=== PATIENT | male | born 1975 | race Caucasian/White ===

== ENCOUNTER 2017-02-14 13:02 | Emergency (ER) | payer SELFPAY ==
--- NOTE | 2017-02-14 13:31 | ERPHSYRPT ---
- History of Present Illness Time Seen by Provider: 02/14/17 13:28 Source: patient Exam Limitations: no limitations Patient Subjective Stated Complaint: states caught left hand in a door on wednesday. Triage Nursing Assessment: ambulated to room without difficulty. left hand very swollen. good radial pulse and good cap refill. denies pain Physician History: states caught left hand in a door on wednesday. Occurred: last week Method of Injury: direct blow Quality: constant Severity of Pain-Max: mild Severity of Pain-Current: mild Extremities Pain Location: hand: left Modifying Factors: Improves With: nothing Associated Symptoms: none Body Map: 1 - swelling Allergies/Adverse Reactions: No Known Drug Allergies Allergy (Verified 02/14/17 13:20) Home Medications: No Reportable Medications [No Reported Medications] 02/14/17 [History] Hx Tetanus, Diphtheria Vaccination/Date Given: No Hx Influenza Vaccination/Date Given: No Hx Pneumococcal Vaccination/Date Given: No - Review of Systems Constitutional: No Symptoms Eyes: No Symptoms Ears, Nose, & Throat: No Symptoms Respiratory: No Symptoms Musculoskeletal: Joint Pain, Joint Swelling (left hand) - Past Medical History Pertinent Past Medical History: No History: Other - Past Surgical History Past Surgical History: Yes Male Surgical History: Testicular Surgery Other Surgical History: hydroceal - Social History Smoking Status: Current every day smoker How long have you smoked: 20 Exposure to second hand smoke: No Drug Use: none Patient Lives Alone: No Significant Family History: no pertinent family hx - Nursing Vital Signs Nursing Vital Signs: Initial Vital Signs Temperature 98.3 F Temperature Source Oral Pulse Rate 80 Respiratory Rate 16 Blood Pressure [] 127/86 Pain Intensity 0 - Physical Exam General Appearance: no apparent distress Hand Exam: limited ROM, soft tissue tenderness, swelling SpO2: 98 Oxygen Delivery: Room Air - Course Nursing assessment & vital signs reviewed: Yes - Radiology Exams Hand X-ray Interpretation: Reviewed by me (no acute fracture) Ordered Tests: Active Orders 24 hr Category Date Time Status HAND (MINIMUM 3 VIEWS) Stat Exams 02/14/17 13:22 Taken - Progress Progress: unchanged, pain not gone completely Counseled pt/family regarding: diagnosis, need for follow-up, rad results - Departure Time of Disposition: 13:53 Departure Disposition: Home Clinical Impression: Hand injury Qualifiers: Encounter type: initial encounter Laterality: left Qualified Code(s): S69.92XA - Unspecified injury of left wrist, hand and finger(s), initial encounter Condition: Good Critical Care Time: No Referrals: MARY MAURO [Primary Care Provider] - Instructions: Finger Sprain Additional Instructions: SPRAINS/STRAINS/CONTUSIONS 1. Rest the affected area as much as possible for the next few days. 2. Apply ice to the affected area for 20-30 minutes at a time, several times a day. 3. Please wear hand and wrist brace for 3 days. If you receive an elastic wrap , wear it only while awake for comfort and support. Re-wrap the elastic wrap if it feels too tight or too loose. 4. If swelling is present, elevate the affected part above the level of the heart for at least 2 to 3 days. 5. Use splints, slings, or crutches as instructed. 6. Watch for severe swelling, coldness, numbness, and discoloration of the fingers and toes. See your family physician or return to the emergency department if any of these are noted. Forms: Work/School Release Form
[2017-02-14 13:59] VITALS: BP 106/64; PULSE 71; O2SAT 97
--- NOTE | 2017-02-14 22:11 | XRAY ---
Indication: Pain and swelling following car door injury. Comparison: None 3 views of the left hand obtained. No bony, articular, or soft tissue abnormalities.
== END 2017-02-14 14:03 | disposition home or self-care (01) ==
LOC: ED 13:02
DX: S60.222A Contusion of left hand, initial encounter (principal); W23.0XXA Caught, crushed, jammed, or pinched between moving objects, initial encounter
CPT/HCPCS: 73130; 99283; L3908

== ENCOUNTER 2017-04-18 11:49 | Emergency (ER) | payer OTHER ==
[2017-04-18] MEDS ORDERED: TORAdol 30 mg Injection IM ONE (12:03)
[2017-04-18] MEDS ORDERED: TORAdol 30 mg Injection ONE (12:06)
--- NOTE | 2017-04-18 12:10 | ERPHSYRPT ---
- History of Present Illness Time Seen by Provider: 04/18/17 12:00 Source: patient Exam Limitations: no limitations Patient Subjective Stated Complaint: pt states he injured back 1 week ago while working. 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 c/o low back pain with numbness to left leg. states he is urinating wnl. Triage Nursing Assessment: pt pink, warm, dry. pt ambulated into Er on own. no deformity noted to back. no dysuria. Physician History: 41-year-old white male arrives with complaint of back pain low lumbar region on the left side symptoms for one week. He states he lifts a lot at work. He denies any acute injuries past medical history includes chronic back pain . Past surgical history includes testicular surgery and hydrocele Inspect is reviewed patient is not on current narcotics Timing/Duration: week(s) (1 week) Method of Injury: lifting (patient states he lifts a lot at work no acute) Quality: aching Back Pain Location: lumbar spine (left lumbar spine) Severity of Pain-Max: moderate Severity of Pain-Current: moderate Modifying Factors: Improves With: nothing Associated Symptoms: lower back pain, No fever, No chills, No sweating, No urinary incontinence, No loss of bowel control, No constipation, No nausea, No vomiting, No problems urinating, No light-headedness, No dizziness, No numbness in legs/feet, No weakness, No sensory/motor loss, No tingling in legs/feet, No muscle spasms Previous symptoms: same symptoms as today (patient's seen approximately 2 years ago for similar pain) Allergies/Adverse Reactions: No Known Drug Allergies Allergy (Verified 04/18/17 11:59) Hx Tetanus, Diphtheria Vaccination/Date Given: Yes (up to date) Hx Influenza Vaccination/Date Given: No Hx Pneumococcal Vaccination/Date Given: No Immunizations Up to Date: Yes - Review of Systems Constitutional: No Fever, No Chills Eyes: No Symptoms Ears, Nose, & Throat: No Symptoms Respiratory: No Cough, No Dyspnea Cardiac: No Chest Pain, No Edema, No Syncope Abdominal/Gastrointestinal: No Abdominal Pain, No Nausea, No Vomiting, No Diarrhea Genitourinary Symptoms: No Dysuria Musculoskeletal: Back Pain Skin: No Rash Neurological: No Dizziness, No Focal Weakness, No Sensory Changes Psychological: No Symptoms Endocrine: No Symptoms All Other Systems: Reviewed and Negative - Past Medical History Pertinent Past Medical History: No History: Other Other Medical History: patient's states he has chronic back pain - Past Surgical History Past Surgical History: Yes Male Surgical History: Testicular Surgery Other Surgical History: hydrocele - Social History Smoking Status: Current every day smoker How long have you smoked: 20 Exposure to second hand smoke: No Drug Use: none Patient Lives Alone: No Significant Family History: no pertinent family hx - Nursing Vital Signs Nursing Vital Signs: Initial Vital Signs Temperature 97.6 F 04/18/17 11:57 Pulse Rate 88 04/18/17 11:57 Respiratory Rate 20 04/18/17 11:57 Blood Pressure 144/91 04/18/17 11:57 O2 Sat by Pulse Oximetry 99 04/18/17 11:57 Pain Scale Pain Intensity 10 - Physical Exam General Appearance: no apparent distress, alert Eye Exam: PERRL/EOMI, eyes nml inspection Ears, Nose, Throat Exam: normal ENT inspection, TMs normal, pharynx normal Neck Exam: normal inspection, non-tender, supple, full range of motion, No meningismus, No midline tenderness Respiratory Exam: normal breath sounds, lungs clear, No respiratory distress Cardiovascular Exam: regular rate/rhythm, normal heart sounds Back Exam: other (back is tender with palpation low lumbarsacral region patient sits upright with hips flexed to 90 degrees and knees flexed to 90 patient refuses to lay back on the cot) Extremity Exam: normal inspection, normal range of motion, No calf tenderness, No pedal edema Peripheral Pulses: dorsalis-pedis (R): 2+, dorsalis-pedis (L): 2+ Neurologic Exam: alert, oriented x 3, cooperative, 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, normal mood/affect, nml station & gait, sensation nml, No motor deficits Skin Exam: normal color, warm, dry, No rash SpO2 Interpretation: normal (90%) SpO2: 99 Oxygen Delivery: Room Air - Course Nursing assessment & vital signs reviewed: Yes - Radiology Exams L-Spine X-ray Interpretation: Interpreted by me, Negative, No Fracture, No Subluxation Ordered Tests: Active Orders 24 hr Category Date Time Status LUMBAR LIMITED (2 OR 3 VIEWS) Stat Exams 04/18/17 12:03 Taken Medication Summary Discontinued Medications Generic Name Dose Route Start Last Admin Trade Name Freq PRN Reason Stop Dose Admin Ketorolac Tromethamine 60 mg 04/18/17 12:03 04/18/17 12:09 Toradol 30 Mg Injection IM 04/18/17 12:04 60 mg STAT ONE Administration Ketorolac Tromethamine Confirm 04/18/17 12:06 Toradol 30 Mg Injection Administered 04/18/17 12:07 Dose 60 mg .ROUTE .STK-MED ONE - Progress Progress: improved Progress Note: 04/18/17 12:09 41-year-old white male who arrives with complaint of pain in the low lumbar back symptoms for one week states he's been lifting a lot. Patient has been seen in the past secondary to lumbar pain at that time patient did not appear to have acute fractures however he disagrees with this and states that he was told by his physician that he had a "smashed vertebrae in the past. On physical examination patient really does not appear to be in acute distress he does sit upright with his hip flexed to 90 and his knees flexed to 90 and refuses to lay back for further examination. He is tender with palpation in the low lumbar region, Will go ahead and give the patient Toradol 60 mg IM and obtain LS-spine series. - Departure Time of Disposition: 12:31 Departure Disposition: Home Clinical Impression: Lumbar strain Qualifiers: Encounter type: initial encounter Qualified Code(s): S39.012A - Strain of muscle, fascia and tendon of lower back, initial encounter Back pain Qualifiers: Back pain location: low back pain Chronicity: acute Back pain laterality: left Sciatica presence: without sciatica Qualified Code(s): M54.5 - Low back pain Condition: Fair Critical Care Time: No Referrals: MARY MAURO [Primary Care Provider] - Instructions: Low Back Pain Additional Instructions: Return home. Ton[place] 5/325 #12 one orally every 4-6 hours as needed for pain. Flexeril 10 mg orally 3 times a day for 5 days. Advil 3 tablets orally every 6 hours as needed for pain. Follow-up with your family doctor or company doctor. Return for acute distress or for severe symptoms. your x-rays have been preliminarily read they will be reread tomorrow you will be notified if any discrepencies are noted. avoid strenuous pushing pulling twisting bending or lifting greater than 5 pounds for 48 hours. Prescriptions: Cyclobenzaprine HCl [Flexeril] 10 mg PO TID #15 tablet Hydrocodone Bit/Acetaminophen [Tonasket 5/325Mg] 1 tab PO Q4-6HPRN PRN #12 tablet PRN Reason: Pain
[2017-04-18 12:41] VITALS: BP 135/76; PULSE 80; O2SAT 98
--- NOTE | 2017-04-18 19:58 | XRAY ---
Indication: Severe low back pain following injury one week ago. Comparison: February 19, 2015. 3 views of the lumbar spine again demonstrates normal alignment with disc spaces preserved and tiny L3 anterior endplate spurring. No new/acute bony, articular, or soft tissue abnormalities.
== END 2017-04-18 12:41 | disposition home or self-care (01) ==
LOC: ED 11:49
DX: S39.012A Strain of muscle, fascia and tendon of lower back, initial encounter (principal); M54.5 Low back pain; X50.0XXA Overexertion from strenuous movement or load, initial encounter
CPT/HCPCS: 72100; 96372; 99284; J1885

== ENCOUNTER 2022-02-21 13:04 | Emergency (ER) | payer SELFPAY ==
--- NOTE | 2022-02-21 13:45 | ERPHSYRPT ---
- History of Present Illness Source: patient Exam Limitations: no limitations Patient Subjective Stated Complaint: Pt c/o of fever, cough, some SOB, body aches, diarrhea Triage Nursing Assessment: Pt brought self to the ER, hypertensive, rates body pain as 7/10, diarrhea, yellow/clear sputum, sorethroat, fever, smoker, pulses normal, skin red/w/d Physician History: 46 yo wm w fever/cough/coryza/diarrhea/ST/AVILES today. Girlfriend hospitalized w CV19, and her children have it. He has not had CV19 immunizations. Timing/Duration: today Fever Severity: mild Fever Therapy SUPPORT TEAM ASSOC: none Associated Symptoms: cough, headache, muscle aches, rhinorrhea, sore throat, No abdominal pain, No chest pain, No confusion, No diaphoresis, No nausea/vomiting, No rash, No shortness of breath, No stiff neck, No syncope, No weakness Allergies/Adverse Reactions: No Known Drug Allergies Allergy (Verified 02/21/22 13:26) Hx Tetanus, Diphtheria Vaccination/Date Given: Yes (up to date) Hx Influenza Vaccination/Date Given: No Hx Pneumococcal Vaccination/Date Given: No Travel Risk - International Travel Have you traveled outside of the country in past 3 weeks: No - Coronavirus Screening Are you exhibiting any of the following symptoms?: Yes Symptoms: Fever, Cough: New Onset, Shortness of Breath, Vomiting/Diarrhea, Headaches/Body Aches/Fatigue Close contact with a COVID-19 positive Pt in past 14-21 Days: Yes - Vaccine Status Have you recieved a Covid-19 vaccination: No - Review of Systems Constitutional: No Symptoms, Fever, Chills Eyes: No Symptoms Ears, Nose, & Throat: No Symptoms, Nose Congestion, Nose Discharge Respiratory: No Symptoms, Cough Cardiac: No Symptoms Abdominal/Gastrointestinal: No Symptoms, Diarrhea Genitourinary Symptoms: No Symptoms Musculoskeletal: No Symptoms, Arthralgias, Myalgias Skin: No Symptoms Neurological: No Symptoms, Headache Psychological: No Symptoms Endocrine: No Symptoms Hematologic/Lymphatic: No Symptoms Immunological/Allergic: No Symptoms - Past Medical History Pertinent Past Medical History: No History: Other Other Medical History: patient's states he has chronic back pain - Past Surgical History Past Surgical History: Yes Male Surgical History: Testicular Surgery Other Surgical History: hydrocele - Social History Smoking Status: Current every day smoker How long have you smoked: 20 Exposure to second hand smoke: Yes Drug Use: marijuana Patient Lives Alone: No Significant Family History: no pertinent family hx - Nursing Vital Signs Nursing Vital Signs: Initial Vital Signs Temperature 100.2 F 02/21/22 13:17 Pulse Rate 77 02/21/22 13:17 Respiratory Rate 23 02/21/22 13:17 Blood Pressure 175/95 02/21/22 13:17 O2 Sat by Pulse Oximetry 99 02/21/22 13:17 Pain Scale Pain Intensity 5 Borderline febrile/Hypertensive - Physical Exam General Appearance: no apparent distress Eye Exam: PERRL/EOMI, eyes nml inspection ENT Exam: no apparent trauma, hearing grossly normal, TMs normal, pharyngeal erythema (Mild) Neck Exam: normal inspection, non-tender, supple, full range of motion, trachea midline, No JVD, No limited range of motion Respiratory Exam: normal breath sounds, lungs clear, no respiratory distress Cardiovascular/Chest Exam: normal heart sounds, regular rate/rhythm, No murmur Gastrointestinal/Abdominal Exam: soft, non tender, no distention Extremity Exam: non-tender, normal range of motion, normal inspection, normal capillary refill, no calf tenderness, no pedal edema Neurologic Exam: alert, oriented x 3, cooperative, [place] II-XII nml as tested, normal mood/affect, nml cerebellar function, nml station & gait, sensation nml, No motor deficits, No sensory deficit Skin Exam: normal color, warm, dry, No rash Lymphatic: No adenopathy SpO2 Interpretation: normal SpO2: 99 O2 Delivery: Room Air - Course Nursing assessment & vital signs reviewed: Yes EKG Interpreted by Me: RATE (NSR/rate78/Normal Qt-QTc/Poor R wave progression V2-V3/No acute ST changes) - Radiology Exams Chest X-ray Interpretation: Interpreted by me (CXR neg per ER read) Ordered Tests: Active Orders 24 hr Category Date Time Status EKG-ER Only STAT Care 02/21/22 14:57 Completed IV Insertion STAT Care 02/21/22 13:30 Completed CHEST 1 VIEW (PORTABLE) Stat Exams 02/21/22 13:55 Taken CBC W DIFF Stat Lab 02/21/22 13:40 Completed CMP Stat Lab 02/21/22 13:40 Completed Lactic Acid Stat Lab 02/21/22 13:21 Completed Medication Summary Discontinued Medications Generic Name Dose Route Start Last Admin Trade Name Tessa PRN Reason Stop Dose Admin Dexamethasone Sodium Phosphate 10 mg 02/21/22 14:33 02/21/22 14:40 Dexamethasone Sod Phosphate 10 Mg/Ml IV 02/21/22 14:34 10 mg STAT ONE Administration Dexamethasone Sodium Phosphate Confirm 02/21/22 14:39 Dexamethasone Sod Phosphate 10 Mg/Ml Administered 02/21/22 14:40 Dose 10 mg .ROUTE .STK-MED ONE Lab/Rad Data: Laboratory Result Diagrams 02/21/22 13:40 02/21/22 13:40 Laboratory Results 02/21/22 02/21/22 02/21/22 Range/Units 13:45 13:40 13:40 WBC 5.8 (4.0-10.5) x10^3/uL RBC 4.58 (4.1-5.6) x10^6/uL Hgb 14.5 (12.5-18.0) g/dL Hct 43.4 (42-50) % MCV 94.8 (78-100) fL MCH 31.7 (26-32) pg MCHC 33.4 (32-36) g/dL RDW 13.2 (11.5-14.0) % Plt Count 201 (150-450) x10^3/uL MPV 9.3 (7.5-11.0) fL Gran % 75.8 H (36.0-66.0) % Immature Gran % (Auto) 0.5 H (0.00-0.4) % Nucleat RBC Rel Count 0.0 (0.00-0.1) % Eos # (Auto) 0.16 (0-0.5) x10^3/uL Immature Gran # (Auto) 0.03 (0.00-0.03) x10^3u/L Absolute Lymphs (auto) 0.43 L (1.0-4.6) x10^3/uL Absolute Monos (auto) 0.74 (0.0-1.3) x10^3/uL Absolute Nucleated RBC 0.00 (0.00-0.01) x10^3u/L Lymphocytes % 7.4 L (24.0-44.0) % Monocytes % 12.7 H (0.0-12.0) % Eosinophils % 2.7 (0.00-5.0) % Basophils % 0.9 (0.0-0.4) % Absolute Granulocytes 4.42 (1.4-6.9) x10^3/uL Basophils # 0.05 (0-0.4) x10^3/uL Sodium 141 (137-145) mmol/L Potassium 3.9 (3.5-5.1) mmol/L Chloride 103 (98-107) mmol/L Carbon Dioxide 29 (22-30) mmol/L Anion Gap 12.1 (5-15) MEQ/L BUN 19 (9-20) mg/dL Creatinine 1.01 (0.66-1.25) mg/dL Estimated GFR > 60.0 ML/MIN Glucose 117 H (74-106) mg/dL Lactic Acid (0.4-2.0) Calcium 9.6 (8.4-10.2) mg/dL Total Bilirubin 0.40 (0.2-1.3) mg/dL AST 35 (17-59) U/L ALT 22 (0-50) U/L Alkaline Phosphatase 48 (38-126) U/L Serum Total Protein 7.8 (6.3-8.2) g/dL Albumin 4.8 (3.5-5.0) g/dL Influenza Type A Ag NEGATIVE (NEGATIVE) Influenza Type B Ag NEGATIVE (NEGATIVE) RSV (PCR) NEGATIVE (Negative) SARS-CoV-2 (PCR) POSITIVE A (NEGATIVE) 02/21/22 Range/Units 13:21 WBC (4.0-10.5) x10^3/uL RBC (4.1-5.6) x10^6/uL Hgb (12.5-18.0) g/dL Hct (42-50) % MCV (78-100) fL MCH (26-32) pg MCHC (32-36) g/dL RDW (11.5-14.0) % Plt Count (150-450) x10^3/uL MPV (7.5-11.0) fL Gran % (36.0-66.0) % Immature Gran % (Auto) (0.00-0.4) % Nucleat RBC Rel Count (0.00-0.1) % Eos # (Auto) (0-0.5) x10^3/uL Immature Gran # (Auto) (0.00-0.03) x10^3u/L Absolute Lymphs (auto) (1.0-4.6) x10^3/uL Absolute Monos (auto) (0.0-1.3) x10^3/uL Absolute Nucleated RBC (0.00-0.01) x10^3u/L Lymphocytes % (24.0-44.0) % Monocytes % (0.0-12.0) % Eosinophils % (0.00-5.0) % Basophils % (0.0-0.4) % Absolute Granulocytes (1.4-6.9) x10^3/uL Basophils # (0-0.4) x10^3/uL Sodium (137-145) mmol/L Potassium (3.5-5.1) mmol/L Chloride (98-107) mmol/L Carbon Dioxide (22-30) mmol/L Anion Gap (5-15) MEQ/L BUN (9-20) mg/dL Creatinine (0.66-1.25) mg/dL Estimated GFR ML/MIN Glucose (74-106) mg/dL Lactic Acid 1.6 (0.4-2.0) Calcium (8.4-10.2) mg/dL Total Bilirubin (0.2-1.3) mg/dL AST (17-59) U/L ALT (0-50) U/L Alkaline Phosphatase (38-126) U/L Serum Total Protein (6.3-8.2) g/dL Albumin (3.5-5.0) g/dL Influenza Type A Ag (NEGATIVE) Influenza Type B Ag (NEGATIVE) RSV (PCR) (Negative) SARS-CoV-2 (PCR) (NEGATIVE) - Progress Progress: improved Progress Note: 02/21/22 16:34 Pt w CV19 w good sats and in NAD. Pt discharged and started on Paxlovid. 02/21/22 16:36 10mg IV Decadron before discharge Counseled pt/family regarding: lab results, diagnosis, need for follow-up, rad results - Departure Departure Disposition: Home Clinical Impression: COVID-19 Condition: Stable Critical Care Time: No Referrals: Provider,Unknown [Primary Care Provider] - Follow up/PCP as directed Instructions: COVID-19 (DC) Additional Instructions: Rest/fluids Quarantine for 5 days Get a pulse oximeter and monitor oxygen saturation-if persistently below 90%, return to ER Follow up with your family MD Forms: Work/School Release Form Prescriptions: Nirmatrelvir/Ritonavir [Paxlovid 2X150 mg-100 mg (Eua)] 1 each PO BID 5 Days #30 tablet
[2022-02-21 13:46] LABS: Absolute Neutrophil Ct (ANC) 4.42 x10^3/uL (1.4-6.9); Basophil (Absolute #) 0.05 x10^3/uL (0-0.4); Eosinophil % 2.7 % (0.00-5.0); Eosinophil (Absolute #) 0.16 x10^3/uL (0-0.5); Hematocrit 43.4 % (42-50); Hemoglobin 14.5 g/dL (12.5-18.0); Lymphocyte (Absolute #) 0.43 x10^3/uL (1.0-4.6); Lymphocytes % 7.4 % (24.0-44.0); Mean Cell Volume 94.8 fL (78-100); Mean Corpuscular Hemoglobin 31.7 pg (26-32); Mean Corpuscular Hgb Concent. 33.4 g/dL (32-36); Mean Platelet Volume 9.3 fL (7.5-11.0); Monocyte (Absolute #) 0.74 x10^3/uL (0.0-1.3); Monocytes % 12.7 % (0.0-12.0); Neutrophil % 75.8 % (36.0-66.0); Platelet Count 201 x10^3/uL (150-450); Red Blood Count 4.58 x10^6/uL (4.1-5.6); Red Cell Distribution Width 13.2 % (11.5-14.0); White Blood Count 5.8 x10^3/uL (4.0-10.5)
[2022-02-21 14:09] LABS: ALBUMIN 4.8 g/dL (3.5-5.0); ALKALINE PHOSPHATASE 48 U/L (38-126); ANION GAP 12.1 MEQ/L (5-15); BLOOD UREA NITROGEN 19 mg/dL (9-20); CHLORIDE 103 mmol/L (98-107); Calcium 9.6 mg/dL (8.4-10.2); Carbon Dioxide 29 mmol/L (22-30); Creatinine 1 1.01 mg/dL (0.66-1.25); EST GLOMERULAR FILTRATION RATE > 60.0 ML/MIN; Glucose 117 mg/dL (74-106); Potassium 3.9 mmol/L (3.5-5.1); SGOT/AST 35 U/L (17-59); SGPT/ALT 22 U/L (0-50); SODIUM 141 mmol/L (137-145); Total Protein 7.8 g/dL (6.3-8.2)
[2022-02-21 14:20] LABS: INFLUENZA A NEGATIVE (NEGATIVE); INFLUENZA B NEGATIVE (NEGATIVE); RESPIRATORY SYNCTIAL VIRUS NEGATIVE (Negative)
[2022-02-21 14:23] LABS: SARS-CoV-2 Xpert Express POSITIVE (NEGATIVE)
[2022-02-21] MEDS ORDERED: DECADRON 10MG INJ. IV ONE (14:33)
[2022-02-21 14:38] VITALS: O2SAT 99
[2022-02-21] MEDS ORDERED: DECADRON 10MG INJ. ONE (14:39)
[2022-02-21 15:02] VITALS: BP 141/81; PULSE 76
--- NOTE | 2022-02-21 19:52 | XRAY ---
Indication: Positive Covid 19. Comparison: October 23, 2010 Portable chest again demonstrates small left hilar calcified node. Remaining heart, lungs, and bony thorax normal.
== END 2022-02-21 15:07 | disposition home or self-care (01) ==
LOC: ED 13:04
DX: U07.1 COVID-19 (principal); R50.9 Fever, unspecified; R05.9 Cough, unspecified; R09.81 Nasal congestion; R19.7 Diarrhea, unspecified; J02.9 Acute pharyngitis, unspecified; R51.9 Headache, unspecified; Z20.822 Contact with and (suspected) exposure to COVID-19; Z72.0 Tobacco use; Z28.310 Unvaccinated for COVID-19
CPT/HCPCS: 0241U; 36000; 36415; 71045; 80053; 83605; 85025; 93005; 96374; 99284; J1100

== ENCOUNTER 2023-07-17 16:49 | Emergency (ER) | payer OTHER ==
[2023-07-17 17:07] VITALS: BP 171/109; PULSE 97; TEMP 98.4; O2SAT 97
--- NOTE | 2023-07-17 17:14 | ERPHSYRPT ---
- History of Present Illness Time Seen by Provider: 07/17/23 17:10 Source: patient Exam Limitations: no limitations Patient Subjective Stated Complaint: On the got off of scaffoling and tripped over a ground colleen and the pencil that was above his ear went into some fingers of hs left hand and it is all swollen today Triage Nursing Assessment: Pt drove self to the ER, hypertensive, rates pain as 2/10, left hand is swollen and red, no difficulty breathing, pulses normal, cap refill normal Physician History: On the got off of scaffoling and tripped over a ground colleen and the pencil that was above his ear went into some fingers of hs left hand and it is all swollen today Occurred: days ago (2 days ago) Method of Injury: direct blow Quality: constant Severity of Pain-Max: mild Severity of Pain-Current: mild Extremities Pain Location: hand: left Modifying Factors: Improves With: nothing Associated Symptoms: none Body Map: 1 - pain Allergies/Adverse Reactions: No Known Drug Allergies Allergy (Verified 07/17/23 17:06) Hx Tetanus, Diphtheria Vaccination/Date Given: Yes (up to date) Hx Influenza Vaccination/Date Given: No Hx Pneumococcal Vaccination/Date Given: No Travel Risk - International Travel Have you traveled outside of the country in past 3 weeks: No - Coronavirus Screening Are you exhibiting any of the following symptoms?: No Close contact with a COVID-19 positive Pt in past 14-21 Days: No - Vaccine Status Have you recieved a Covid-19 vaccination: No - Review of Systems Constitutional: No Fever, No Chills Eyes: No Symptoms Ears, Nose, & Throat: No Symptoms Respiratory: No Cough, No Dyspnea Cardiac: No Chest Pain, No Edema, No Syncope Abdominal/Gastrointestinal: No Abdominal Pain, No Nausea, No Vomiting, No Diarrhea Genitourinary Symptoms: No Dysuria Musculoskeletal: No Back Pain, No Neck Pain Skin: Cellulitis (left hand), No Rash Neurological: No Dizziness, No Focal Weakness, No Sensory Changes Psychological: No Symptoms Endocrine: No Symptoms All Other Systems: Reviewed and Negative - Past Medical History Pertinent Past Medical History: Yes History: Other Other Medical History: patient's states he has chronic back pain, hydrocele - Past Surgical History Past Surgical History: Yes Male Surgical History: Testicular Surgery Other Surgical History: hydrocele - Social History Smoking Status: Current every day smoker How long have you smoked: 20 Exposure to second hand smoke: Yes Drug Use: marijuana Patient Lives Alone: No Significant Family History: no pertinent family hx - Nursing Vital Signs Nursing Vital Signs: Initial Vital Signs Temperature 98.4 F 07/17/23 16:59 Pulse Rate 97 H 07/17/23 16:59 Blood Pressure 171/109 07/17/23 16:59 O2 Sat by Pulse Oximetry 97 07/17/23 16:59 Pain Scale Pain Intensity 2 - Physical Exam General Appearance: alert Eyes, Ears, Nose, Throat Exam: moist mucous membranes Neck Exam: non-tender, supple Cardiovascular/Respiratory Exam: chest non-tender, normal breath sounds, regular rate/rhythm, no respiratory distress Abdominal Exam: non-tender, No guarding Back Exam: normal inspection, No vertebral tenderness Elbow/Forearm Exam: normal inspection Wrist Exam: normal inspection Hand Exam: infection, soft tissue tenderness, swelling, No bone tenderness, No laceration, No limited ROM Neuro/Tendon Exam: normal sensation, normal motor functions Mental Status Exam: alert, oriented x 3, cooperative Skin Exam: normal color, warm, dry SpO2: 97 - Course Nursing assessment & vital signs reviewed: Yes - Progress Progress: unchanged Counseled pt/family regarding: diagnosis, need for follow-up Medical Desision Making - Risk of complications Minimal Risk: Minimal risk of morbidity - Departure Departure Disposition: Home Clinical Impression: Cellulitis of left hand Condition: Stable Critical Care Time: No Referrals: DOCTOR,NO FAMILY [Primary Care Provider] - Follow up/PCP as directed Instructions: Cellulitis (Skin Infection), Adult ED Additional Instructions: Discharge/Care Plan ROSANGELA MARAVILLADOMINIC SANDS was seen on 07/17/23 in the Emergency Room. The patient was counseled regarding Diagnosis,Lab results, Imaging studies, need for follow up and when to return to the Emergency Room. Prescriptions given: Discharge Note I have spoken with the patient and/or caregivers. I have explained the patient's condition, diagnosis and treatment plan based on the information available to me at this time. I have answered the patient's and/or caregiver's questions and addressed any concerns. The patient and/or caregivers have as good understanding of the patient's diagnosis, condition and treatment plan as can be expected at this point. The vital signs have been stable. The patient's condition is stable and appropriate for discharge from the emergency department. The patient will pursue further outpatient evaluation with the primary care physician or other designated or consulting physician as outlined in the discharge instructions. The patient and/or caregivers are agreeable to this plan of care and follow-up instructions have been explained in detail. The patient and/or caregivers have received these instruction. The patient/and or caregivers are aware that any significant change in condition or worsening of symptoms should prompt an immediate return to this or the closest emergency department or call 911. GRUPO ADAMES JRALD SHAVON was seen on 07/17/23 n the Emergency Room. At that time you were treated for an emergent condition, during your visit Laboratory, Radi ology and/or other procedures may have been ordered. It is very important that you follow-up with your Primary Care Physician NO FAMILY DOCTOR within the next 24-48 hours to review your Emergency Room visit and the final results of testing that was ordered. Some test results such as Urine Cultures, Blood Cultures, and other cultures if ordered will not be finalized for 24-48 hours. If you do not have a Primary Care Provider please call the medical records department at [phone] ext [phone] to obtain a copy of your results or you may sign into our patient portal to obtain these results by visiting us @ [email or web address] and completing the following steps: 1. Click on the Patient Portal link 2. Click the Patient Self Enrollment Link to complete the enrollment form and entering your 3. Once the enrollment form is completed you will receive an email with a temporary ID and password at the email address you provided. 4. Next choose a user name and password. Your user name must be at least 4 trinity acters long and your password must be at least 4 characters long. 5. Choose a security question from the list and provide your answer to the question. If you already have signed into the Health Portal you may access your Health Care Information 01/03 by the following steps: 1. Login to our website @ [email or web address] 2. Enter your original user name and password. FAQS The [facility] Health Portal is an online tool that contains your Lab Results, Radiology Reports, Visit History, Discharge Instructions and Health Summary Lab and Radiology Results will not be available for 72 hours on the portal. The Portal is a secure site, passwords are encryted and URLs are re-written so they cannot be copied and pasted. You and authorized family members are the only ones who can access your Portal. Also there is a timeout feature that protects your information if you leave the Portal page open. If you have technical difficulty please use the Contact Us link on the page this will allow you to submit any questions you have regarding the Portal or you may contact the Medical Record Department at [phone] ext [phone]. Prescriptions: Levofloxacin [Levaquin 500 MG Tablet] 500 mg PO QAM #10 tablet
== END 2023-07-17 17:43 | disposition home or self-care (01) ==
LOC: ED 16:49
DX: L03.114 Cellulitis of left upper limb (principal); Z28.310 Unvaccinated for COVID-19; Z72.0 Tobacco use
CPT/HCPCS: 99281

== ENCOUNTER 2023-07-20 09:09 | Emergency (ER) | payer OTHER ==
[2023-07-20 09:24] VITALS: BP 159/115; PULSE 97; TEMP 98.1; O2SAT 100
--- NOTE | 2023-07-20 09:56 | ERPHSYRPT ---
- History of Present Illness Time Seen by Provider: 07/20/23 09:20 Source: patient Exam Limitations: no limitations Patient Subjective Stated Complaint: Pt injured hand a couple days ago by falling onto his pencil that was behind his ear and was placed on an antibiotic, the hand is more swollen today Triage Nursing Assessment: Pt brought to the ER by his , hypertensive, rates pain as 3/10, left hand is more swollen today and appears infected, pulses and cap refill normal Physician History: Patient is a 47-year-old male presents to our ED for evaluation of swelling to his left hand. Patient reports he injured himself last . Patient tripped and impaled his left ring finger with a pencil. Patient followed up in our ER 2 days later on Wednesday. Patient was started on antibiotics. Patient currently on Levaquin 500 daily. Pain described as an ache that is localized. No radiation. Patient states his tetanus is up-to-date. Vitals are stable. No other injuries reported. Significant other at bedside. They voiced no other complaints or concerns at this time. Portions of this note were created with voice recognition technology. There may be grammatical, spelling, punctuation or sound alike errors Timing/Duration: day(s) (5 days ago) Severity: moderate Modifying Factors: Improves With: movement Associated Symptoms: denies symptoms Allergies/Adverse Reactions: No Known Drug Allergies Allergy (Verified 07/20/23 09:24) Hx Tetanus, Diphtheria Vaccination/Date Given: Yes (up to date) Hx Influenza Vaccination/Date Given: No Hx Pneumococcal Vaccination/Date Given: No Travel Risk - International Travel Have you traveled outside of the country in past 3 weeks: No - Coronavirus Screening Are you exhibiting any of the following symptoms?: No Close contact with a COVID-19 positive Pt in past 14-21 Days: No - Vaccine Status Have you recieved a Covid-19 vaccination: No - Review of Systems Constitutional: No Symptoms, No Fever, No Chills Eyes: No Symptoms Ears, Nose, & Throat: No Symptoms Respiratory: No Symptoms, No Cough, No Dyspnea Cardiac: No Symptoms, No Chest Pain, No Edema, No Syncope Abdominal/Gastrointestinal: No Symptoms, No Abdominal Pain, No Nausea, No Vomiting, No Diarrhea Genitourinary Symptoms: No Symptoms, No Dysuria Musculoskeletal: No Symptoms, No Back Pain, No Neck Pain Skin: No Symptoms, No Rash Neurological: No Symptoms, No Dizziness, No Focal Weakness, No Sensory Changes Psychological: No Symptoms Endocrine: No Symptoms Hematologic/Lymphatic: No Symptoms Immunological/Allergic: No Symptoms All Other Systems: Reviewed and Negative - Past Medical History Pertinent Past Medical History: Yes History: Other Other Medical History: patient's states he has chronic back pain, hydrocele - Past Surgical History Past Surgical History: Yes Male Surgical History: Testicular Surgery Other Surgical History: hydrocele - Social History Smoking Status: Current every day smoker How long have you smoked: 20 Exposure to second hand smoke: Yes Drug Use: marijuana Patient Lives Alone: No Significant Family History: no pertinent family hx - Nursing Vital Signs Nursing Vital Signs: Initial Vital Signs Temperature 98.1 F 07/20/23 09:14 Pulse Rate 97 H 07/20/23 09:14 Blood Pressure 159/115 07/20/23 09:14 O2 Sat by Pulse Oximetry 100 07/20/23 09:14 Pain Scale Pain Intensity 3 - Physical Exam General Appearance: no apparent distress, alert Eye Exam: PERRL/EOMI Ears, Nose, Throat Exam: normal ENT inspection Neck Exam: normal inspection, non-tender, supple, full range of motion Respiratory Exam: normal breath sounds, airway intact, No respiratory distress Cardiovascular Exam: regular rate/rhythm, normal peripheral pulses Gastrointestinal/Abdomen Exam: No tenderness, No mass Back Exam: normal inspection, normal range of motion, No CVA tenderness, No vertebral tenderness Extremity Exam: normal inspection, normal range of motion, pelvis stable, other (Puncture wound to the dorsal aspect of the left fourth digit just proximal to the PIP joint.The involved hand is neurovascular intact distally. Compartments are soft cap refill less than 2 seconds. No lymphangitis.) Neurologic Exam: alert, oriented x 3, cooperative, normal mood/affect, sensation nml, No motor deficits Skin Exam: normal color, warm, dry, No rash Lymphatic Exam: No adenopathy SpO2 Interpretation: normal SpO2: 100 O2 Delivery: Room Air - Course Nursing assessment & vital signs reviewed: Yes - Radiology Exams Hand X-ray Interpretation: Teleradiologist Report (No acute findings. No foreign bodies no fractures or dislocations.) Ordered Tests: Active Orders 24 hr Category Date Time Status HAND (MINIMUM 3 VIEWS) Stat Exams 07/20/23 09:31 Completed - Progress Progress: improved Progress Note: Case discussed with Dr. Salazar Hand surgeon at 10:21 AM. He advised the patient to stop smoking, minimize activity, avoid applying ice, gentle range of motion of the involved digit, Elevate hand and IV dose of cefazolin, 10 days of Augmentin 875 twice daily and to follow-up in Dr. Salazar's office tomorrow morning. Patient to call this morning to establish a follow-up time. Discontinue Levaquin 07/20/23 10:24 Patient a 47-year-old male presents to our ED for reevaluation of a puncture wound sustained 5 days ago. Patient currently on Levaquin antibiotic. X-ray negative for fracture or dislocation. No retained foreign body.Patient to follow-up with Dr. Salazar tomorrow morning.Instructions as per above Complexity problem addressed is moderate acute complicated. No critical care Complexity of data Reviewed and analyzed is Extensive. X-ray reviewed and analyzed. Management discussed with hand surgeon who advised the above recommendations. Risk of complication and or risk of morbidity/mortality of patient management is moderate. Prescription for Augmentin forwarded to patient's pharmacy Vital stable. Time spent to discharge patient is approximately 15 minutes. Plan of care established for shared decision making. No social determinants of health present impede follow-up. Portions of this note were created with voice recognition technology. There may be grammatical, spelling, punctuation or sound alike errors 07/20/23 10:34 Patient refused the IV antibiotics. Patient states he removed his finger scab yesterday and appears to be in a hurry to leave the emergency department. 07/20/23 10:42 Counseled pt/family regarding: diagnosis, need for follow-up, rad results - Departure Departure Disposition: Home Clinical Impression: Infected hand, Puncture wound, hand Condition: Stable Critical Care Time: No Referrals: DOCTOR,NO FAMILY [Primary Care Provider] - Follow up/PCP as directed Additional Instructions: Please call Dr. Salazar's office today to schedule a follow-up appointment for tomorrow morning. [phone] Salazar, do not apply ice to the involved area, minimize activity, elevate your hand, and stop smoking for at least 2 weeks Augmentin antibiotic twice a day for 10 days. Discontinue Levaquin Discharge/Care Plan DOMINIC ADAMES JR was seen on 07/20/23 in the Emergency Room. The patient was counseled regarding Diagnosis,Lab results, Imaging studies, need for follow up and when to return to the Emergency Room. Prescriptions given: Discharge Note I have spoken with the patient and/or caregivers. I have explained the patient's condition, diagnosis and treatment plan based on the information available to me at this time. I have answered the patient's and/or caregiver's questions and addressed any concerns. The patient and/or caregivers have as good understanding of the patient's diagnosis, condition and treatment plan as can be expected at this point. The vital signs have been stable. The patient's condition is stable and appropriate for discharge from the emergency department. The patient will pursue further outpatient evaluation with the primary care physician or other designated or consulting physician as outlined in the discharge instructions. The patient and/or caregivers are agreeable to this plan of care and follow-up instructions have been explained in detail. The patient and/or caregivers have received these instruction. The patient/and or caregivers are aware that any significant change in condition or worsening of symptoms should prompt an immediate return to this or the closest emergency department or call 911. Prescriptions: Amox Tr/Potass Clav. 875 mg [Augmentin 875-125 Tablet] 875 mg PO BID 10 Days #20 tablet
--- NOTE | 2023-07-20 09:59 | XRAY ---
Indication: Pain and swelling following injury. Comparison: February 14, 2017 3 view left hand obtained. Again no bony, articular, or soft tissue abnormalities.
== END 2023-07-20 10:38 | disposition home or self-care (01) ==
LOC: ED 09:09
DX: S61.235A Puncture wound without foreign body of left ring finger without damage to nail, initial encounter (principal); L08.9 Local infection of the skin and subcutaneous tissue, unspecified; W26.8XXA Contact with other sharp object(s), not elsewhere classified, initial encounter; Z28.310 Unvaccinated for COVID-19; Z72.0 Tobacco use
CPT/HCPCS: 73130; 99282

== ENCOUNTER 2023-12-07 09:54 | Emergency (ER) | payer OTHER, SELFPAY ==
[2023-12-07 10:18] VITALS: BP 159/103; PULSE 80; RESP 20; TEMP 97.9; O2SAT 98
[2023-12-07] MEDS: XYLOCAINE 2% HCL 20 ML MDV IJ ONE (10:20)
--- NOTE | 2023-12-07 10:43 | ERPHSYRPT ---
- History of Present Illness Time Seen by Provider: 12/07/23 10:20 Source: patient Exam Limitations: no limitations Patient Subjective Stated Complaint: Laceration Triage Nursing Assessment: Patient ambulated back to ED and transferred self to bed. Patient A+O X 3. Patient's skin pink, warm and dry. Patient states he was messing with his dog that was in a fence when he cut his left forearm on the fence. Patient has 3cmX 1 cm laceration noted to top of left forearm. Patient denies pain or discomfort. Physician History: 48-year-old male presents to our emergency department for evaluation of laceration to his left arm. Patient sustained a laceration on a keny wire fence just prior to arrival. Tetanus is up-to-date per patient. Vital stable. Laceration measures 3 cm no active bleeding. Symptoms are mild to moderate in intensity. No specific worsening or improving factors. Patient otherwise feels well. No blunt trauma. Patient voices no other complaints or concerns at this time. No foreign body sensation and wound Portions of this note were created with voice recognition technology. There may be grammatical, spelling, punctuation or sound alike errors Timing/Duration: today Severity: moderate Modifying Factors: Improves With: nothing Associated Symptoms: denies symptoms Allergies/Adverse Reactions: No Known Drug Allergies Allergy (Verified 12/07/23 10:09) Home Medications: No Reportable Medications [No Reported Medications] 12/07/23 [History] Hx Tetanus, Diphtheria Vaccination/Date Given: Yes (up to date) Hx Influenza Vaccination/Date Given: No Hx Pneumococcal Vaccination/Date Given: No Immunizations Up to Date: Yes Travel Risk - International Travel Have you traveled outside of the country in past 3 weeks: No - Emerging Infectious Disease Are you exhibiting symptoms associated with any current EIDs: No - Review of Systems Constitutional: No Symptoms, No Fever, No Chills Eyes: No Symptoms Ears, Nose, & Throat: No Symptoms Respiratory: No Symptoms, No Cough, No Dyspnea Cardiac: No Symptoms, No Chest Pain, No Edema, No Syncope Abdominal/Gastrointestinal: No Symptoms, No Abdominal Pain, No Nausea, No Vomiting, No Diarrhea Genitourinary Symptoms: No Symptoms, No Dysuria Musculoskeletal: No Symptoms, No Back Pain, No Neck Pain Skin: No Symptoms, No Rash Neurological: No Symptoms, No Dizziness, No Focal Weakness, No Sensory Changes Psychological: No Symptoms Endocrine: No Symptoms Hematologic/Lymphatic: No Symptoms Immunological/Allergic: No Symptoms All Other Systems: Reviewed and Negative - Past Medical History Pertinent Past Medical History: Yes History: Other Other Medical History: patient's states he has chronic back pain, hydrocele - Past Surgical History Past Surgical History: Yes Male Surgical History: Testicular Surgery Other Surgical History: hydrocele Significant Family History: no pertinent family hx - Social History Smoking Status: Current every day smoker How long have you smoked: 20 Exposure to second hand smoke: Yes Drug Use: none Patient Lives Alone: No - Nursing Vital Signs Nursing Vital Signs: Initial Vital Signs Temperature 97.9 F 12/07/23 10:13 Pulse Rate 80 12/07/23 10:13 Respiratory Rate 20 12/07/23 10:13 Blood Pressure 159/103 12/07/23 10:13 O2 Sat by Pulse Oximetry 98 12/07/23 10:13 Pain Scale Pain Intensity 0 - Physical Exam General Appearance: no apparent distress, alert Eye Exam: PERRL/EOMI, eyes nml inspection Ears, Nose, Throat Exam: normal ENT inspection, moist mucous membranes Neck Exam: normal inspection, full range of motion Respiratory Exam: normal breath sounds, lungs clear, airway intact, No respiratory distress Cardiovascular Exam: regular rate/rhythm, normal heart sounds, normal peripheral pulses Gastrointestinal/Abdomen Exam: soft, normal bowel sounds, No tenderness, No mass Back Exam: normal inspection, normal range of motion, No CVA tenderness, No vertebral tenderness Extremity Exam: normal inspection, normal range of motion, pelvis stable Neurologic Exam: alert, oriented x 3, cooperative, normal mood/affect, sensation nml, No motor deficits Skin Exam: normal color, warm, dry, other (2 cm laceration posterior lateral forearm specifically at the distal third. No tenderness injury. Tendon function intact. Extremities neurovascular intact distally compartments are soft cap refill less than 2 seconds. Wound explored. No foreign bodies observed), No rash Lymphatic Exam: No adenopathy SpO2 Interpretation: normal SpO2: 98 O2 Delivery: Room Air Procedures - Laceration/Wound Repair Left Arm Time of Procedure: 10:25 Wound Location: Left, lower arm Wound Length (cm): 3 Wound's Depth, Shape: superficial Wound Explored: clean Irrigated: Yes Hibiclens Prep: Yes Anesthesia: 1% Lidocaine Volume Anesthetic (ccs): 4 Wound Debrided: No debridement indicated Wound Repaired With: sutures Suture Size/Type: 4-0, ethilon Number of Sutures: 7 Layer Closure?: No Sterile Dressing Applied?: Yes Splint Applied?: No Sling Applied?: No Progress: 12/07/23 10:42 Patient tolerated procedure well. No intra or postprocedural complications. Patient neurovascular tact distally postprocedure. - Course Nursing assessment & vital signs reviewed: Yes - Progress Progress: improved Progress Note: 48-year-old male presents to our ED for evaluation of a laceration left forearm. Laceration sustained on a keny wire fence. Injury occurred just prior to arrival. Physical exam feels normal foreign bodies. There is a 3 cm laceration no active bleeding. Involved extremities neurovascular tact distally. Wound was repaired using 7 simple interrupted sutures using 4-0 Ethilon. Anesthesia using 4 cc of lidocaine. No intra or postprocedural complications. Patient neurovascular tact distally postprocedure. Complexity of problem addressed is moderate acute complicated No critical care time Complex of data reviewed and analyzed is none. No specialized testing ordered. Diagnosis made based on history and physical exam. Risk of complication and or risk of morbidity/mortality patient management is low Vital stable. Time spent to discharge patient is approximately 15 minutes. Plan of care established for shared decision making. No social determinants of health present impede follow-up. Patient to maintain sterile dressing for 48 hours. Sutures may be removed in 7 days. No indication for antibiotics at this time. Patient voices no other complaints or concerns at this time. Portions of this note were created with voice recognition technology. There may be grammatical, spelling, punctuation or sound alike errors 12/07/23 10:44 Counseled pt/family regarding: diagnosis, need for follow-up - Departure Departure Disposition: Home Clinical Impression: Laceration Condition: Stable Critical Care Time: No Referrals: DOCTOR,NO FAMILY [Primary Care Provider] - Follow up/PCP as directed KIRAN ALVARES MD [ACTIVE STAFF] - Follow up/PCP as directed Additional Instructions: Discharge/Care Plan DOMINIC ADAMES JR was seen on 12/07/23 in the Emergency Room. The patient was counseled regarding Diagnosis,Lab results, Imaging studies, need for follow up and when to return to the Emergency Room. Prescriptions given: Discharge Note I have spoken with the patient and/or caregivers. I have explained the patient's condition, diagnosis and treatment plan based on the information available to me at this time. I have answered the patient's and/or caregiver's questions and addressed any concerns. The patient and/or caregivers have as good understanding of the patient's diagnosis, condition and treatment plan as can be expected at this point. The vital signs have been stable. The patient's condition is stable and appropriate for discharge from the emergency department. The patient will pursue further outpatient evaluation with the primary care physician or other designated or consulting physician as outlined in the discharge instructions. The patient and/or caregivers are agreeable to this plan of care and follow-up instructions have been explained in detail. The patient and/or caregivers have received these instruction. The patient/and or caregivers are aware that any significant change in condition or worsening of symptoms should prompt an immediate return to this or the closest emergency department or call 911.
[2023-12-07] MEDS ORDERED: XYLOCAINE 1% HCL 20 ML MDV ONE (11:21)
== END 2023-12-07 11:10 | disposition home or self-care (01) ==
LOC: ED 09:54
DX: S51.812A Laceration without foreign body of left forearm, initial encounter (principal); W26.8XXA Contact with other sharp object(s), not elsewhere classified, initial encounter; Z72.0 Tobacco use
CPT/HCPCS: 12002; 96372; 99283

== ENCOUNTER 2024-01-22 00:55 | Emergency (ER) | payer OTHER ==
[2024-01-22 01:39] VITALS: BP 131/72; PULSE 85; RESP 16; TEMP 98.6; O2SAT 96
[2024-01-22] MEDS ORDERED: Augmentin 875-125 Tablet ONE (01:53)
[2024-01-22] MEDS ORDERED: NORCO 5/325 MG ONE ×2 (01:53→02:03)
[2024-01-22] MEDS: NORCO 5/325 MG PO ONE ×2 (01:55→02:03)
[2024-01-22] MEDS ORDERED: XYLOCAINE VISCOUS 2% 15 ML CUP ONE (01:55)
[2024-01-22] MEDS ORDERED: CETACAINE SPRAY ONE (01:55)
[2024-01-22] MEDS: Augmentin 875-125 Tablet PO ONE (01:55)
[2024-01-22] MEDS ORDERED: MAALOX ES 30 ML UNIT DOSE ONE (01:56)
[2024-01-22] MEDS: XYLOCAINE VISCOUS 2% 15 ML CUP PO ONE (01:58)
[2024-01-22] MEDS: CETACAINE SPRAY TP ONE (01:58)
[2024-01-22] MEDS: MAALOX ES 30 ML UNIT DOSE PO ONE (01:58)
--- NOTE | 2024-01-22 02:08 | ERPHSYRPT ---
- History of Present Illness Time Seen by Provider: 01/22/24 00:57 Source: patient Exam Limitations: no limitations Patient Subjective Stated Complaint: Pt reports he has had tooth pain that started this morning and has continued to worsen. Has taken ibuprofen without relief. Triage Nursing Assessment: Pt alert and oriented x3. Skin warm/pink/dry. Ambulated to ED cot without difficulty. Minimal swelling around upper lip, upper front teeth appear rotted and are black in color. Physician History: 48 years old male with multiple broken teeth, caries and periodontal disease presented in the ER with right upper jaw pain and swelling started since morning with progressive worsening. Patient reports moderate intensity sharp pain. No fever or chills reported. Allergies/Adverse Reactions: No Known Drug Allergies Allergy (Verified 12/07/23 10:09) Hx Tetanus, Diphtheria Vaccination/Date Given: Yes (up to date) Hx Influenza Vaccination/Date Given: No Hx Pneumococcal Vaccination/Date Given: No Travel Risk - International Travel Have you traveled outside of the country in past 3 weeks: No - Emerging Infectious Disease Are you exhibiting symptoms associated with any current EIDs: No - Review of Systems Constitutional: No Symptoms Ears, Nose, & Throat: Mouth Pain, Mouth Swelling, Loose Teeth Respiratory: No Symptoms Cardiac: No Symptoms Musculoskeletal: No Symptoms Neurological: No Symptoms - Past Medical History Pertinent Past Medical History: Yes History: Other Other Medical History: patient's states he has chronic back pain, hydrocele - Past Surgical History Past Surgical History: Yes Male Surgical History: Testicular Surgery Other Surgical History: hydrocele Significant Family History: no pertinent family hx - Social History Smoking Status: Current every day smoker How long have you smoked: 20 Exposure to second hand smoke: Yes Drug Use: none Patient Lives Alone: No - Social Determinants of Health Will the patient participate in the screening: Declined to provide - Nursing Vital Signs Nursing Vital Signs: Initial Vital Signs Temperature 98.6 F 01/22/24 01:33 Pulse Rate 85 01/22/24 01:33 Respiratory Rate 16 01/22/24 01:33 Blood Pressure 131/72 01/22/24 01:33 O2 Sat by Pulse Oximetry 96 01/22/24 01:33 Pain Scale Pain Intensity 10 - Physical Exam General Appearance: no apparent distress Eye Exam: bilateral eye: normal inspection, PERRL, EOMI Nasal Exam: normal inspection Throat Exam: pharynx normal, dental tenderness (Multiple broken teeth with caries and periodontal disease. Gingival swelling right upper anterolateral with no fluctuation.), maxillary swelling Neck Exam: normal inspection, non-tender, supple, full range of motion Cardiovascular/Respiratory Exam: normal breath sounds, regular rate/rhythm Neurologic Exam: alert, oriented x 3, cooperative, engineer technician II-XII nml as tested Skin Exam: normal color SpO2 Interpretation: normal SpO2: 96 O2 Delivery: Room Air Ordered Tests: Medication Summary Discontinued Medications Generic Name Dose Route Start Last Admin Trade Name Tessa PRN Reason Stop Dose Admin Hydrocodone Bitart/Acetaminophen 2 tab 01/22/24 01:45 01/22/24 01:55 Hydrocodone/Apap 5/325 1 Tab Tablet PO 01/22/24 01:46 2 tab STAT ONE Administration Hydrocodone Bitart/Acetaminophen Confirm 01/22/24 01:53 Hydrocodone/Apap 5/325 1 Tab Tablet Administered 01/22/24 01:54 Dose 2 tab .ROUTE .STK-MED ONE Hydrocodone Bitart/Acetaminophen 2 tab 01/22/24 02:01 01/22/24 02:03 Hydrocodone/Apap 5/325 1 Tab Tablet PO 01/22/24 02:02 2 tab SENT HOME W/ PATIENT ONE Administration Al Hydrox/Mg Hydrox/Simethicone 30 ml 01/22/24 01:56 01/22/24 01:58 Mag Hydrox/Al Hydrox/Simeth 30 Ml Udcup PO 01/22/24 01:57 30 ml STAT ONE Administration Al Hydrox/Mg Hydrox/Simethicone Confirm 01/22/24 01:56 Mag Hydrox/Al Hydrox/Simeth 30 Ml Udcup Administered 01/22/24 01:57 Dose 30 ml .ROUTE .STK-MED ONE Amoxicillin/Clavulanate Potassium 875 mg 01/22/24 01:45 01/22/24 01:55 Amox Tr/Potassium Clavulanate 875 Mg Tablet PO 01/22/24 01:46 875 mg STAT ONE Administration Amoxicillin/Clavulanate Potassium Confirm 01/22/24 01:53 Amox Tr/Potassium Clavulanate 875 Mg Tablet Administered 01/22/24 01:54 Dose 875 mg .ROUTE .STK-MED ONE Benzocaine/Butamben/Tetracaine HCl 1 spray 01/22/24 01:56 01/22/24 01:58 Tetracaine/Benzocaine/Butamben 1 Fowler TP 01/22/24 01:57 1 spray ONCE ONE Administration Benzocaine/Butamben/Tetracaine HCl Confirm 01/22/24 01:55 Tetracaine/Benzocaine/Butamben 1 Fowler Administered 01/22/24 01:56 Dose 1 spray .ROUTE .STK-MED ONE Lidocaine HCl 15 ml 01/22/24 01:56 01/22/24 01:58 Lidocaine Hcl 2% Viscous 15 Ml Udcup PO 01/22/24 01:57 15 ml STAT ONE Administration Lidocaine HCl Confirm 01/22/24 01:55 Lidocaine Hcl 2% Viscous 15 Ml Udcup Administered 01/22/24 01:56 Dose 150 ml .ROUTE .STK-MED ONE - Progress Progress: improved, pain not gone completely Progress Note: 01/22/24 02:06 48-year-old is evaluated in the ER for right upper jaw pain and swelling with history of multiple broken teeth and caries. Patient has gingival swelling but no fluctuation. Given symptomatic treatment for pain and started on Augmentin. Outpatient follow-up recommended. Discussed signs symptoms of worsening needing return to ER which he seems understanding. Counseled pt/family regarding: diagnosis, need for follow-up Medical Desision Making - Diagnostic Testing Diagnostic test were ordered, analyzed, and reviewed by me: No - Risk of complications The pt has a mod risk of morbidity or mortality based on: Need for prescription drug management - Departure Departure Disposition: Home Clinical Impression: Dental infection Condition: Stable Critical Care Time: No Referrals: MELI COATES NP, RN [Primary Care Provider] - Follow up with PCP 1 day KAVITA ANGUIANO DDS [NON-STAFF PHY W/O PRIVILEGES] - Follow up other (Call for appointment) Instructions: Tooth Abscess (DC) Additional Instructions: Take Tylenol/ibuprofen as needed. Follow-up with primary care/dentist for reevaluation. Return to ER for any worsening. Prescriptions: Ibuprofen 600 mg PO Q6HPRN PRN 10 Days #20 tablet PRN Reason: Pain Amox Tr/Potass Clav. 875 mg [Augmentin 875-125 Tablet] 875 mg PO BID #14 tablet
== END 2024-01-22 02:17 | disposition home or self-care (01) ==
LOC: ED 00:55
DX: K04.7 Periapical abscess without sinus (principal); K08.89 Other specified disorders of teeth and supporting structures; Z72.0 Tobacco use
CPT/HCPCS: 99282; A9270-GY